=== PATIENT | female | born 1955 | race Caucasian/White ===

== ENCOUNTER → 2021-10-10 | Outpatient (CLI) | payer OTHER ==
[2021-10-10 19:45] LABS: BASOPHILS ABSOLUTE AUTO 0.03 K/mm3 (0.00-0.23); BASOPHILS PERCENT AUTO 1 % (0-2); EOSINOPHILS ABSOLUTE AUTO 0.11 K/mm3 (0.00-0.68); EOSINOPHILS PERCENT AUTO 2 % (0-6); Hematocrit 43.4 % (33.0-51.0); Hemoglobin 13.9 g/dL (11.5-16.0); IMMATURE GRAN ABSOLUTE AUTO 0.01 K/mm3 (0.00-0.10); IMMATURE GRAN PERCENT AUTO 0 % (0-1); LYMPHOCYTES ABSOLUTE AUTO 1.57 K/mm3 (0.84-5.20); LYMPHOCYTES PERCENT AUTO 31 % (21-46); MONOCYTES ABSOLUTE AUTO 0.49 K/mm3 (0.16-1.47); MONOCYTES PERCENT AUTO 10 % (4-13); Mean Corpuscular HGB 29.7 pg (26.0-34.0); Mean Corpuscular Volume 93 fL (80-100); NEUTROPHILS ABSOLUTE AUTO 2.94 K/mm3 (1.96-9.15); NEUTROPHILS PERCENT AUTO 57 % (41-73); Platelet Count 231 K/mm3 (150-400); RDW Standard Deviation 44.2 fL (35.1-46.3); Red Blood Cell Count 4.68 M/mm3 (3.80-5.20); White Blood Cell Count 5.15 K/mm3 (4.00-11.30)
[2021-10-10 20:42] LABS: Albumin, Blood 4.5 g/dL (3.4-5.0); Albumin/Globulin Ratio 1.5 (0.8-1.8); Bilirubin, Total 0.4 mg/dL (0.1-1.0); Bun/Creatinine Ratio 18.9 (12.0-20.0); Calcium, Blood 10.3 mg/dL (8.5-10.1); Creatinine, Blood 0.85 mg/dL (0.40-1.00); Globulin, Blood 3.1 g/dL (2.2-4.0); Potassium, Blood 4.1 mmol/L (3.5-5.5); Thyroid Stimulating Hormone 0.872 uIU/mL (0.360-4.800); Total Protein, Blood 7.6 g/dL (6.4-8.2)
== END | disposition home or self-care (01) ==
LOC: LAB SHORT 16:45 → LAB 16:45
PROVIDERS: Nurse Practitioner Family
DX: F32.A Depression, unspecified (principal); R42 Dizziness and giddiness
CPT/HCPCS: 80053; 84443; 85025

== ENCOUNTER → 2022-06-30 | Outpatient (CLI) | payer MEDICARE, OTHER ==
[2022-06-30 23:23] LABS: BASOPHILS ABSOLUTE AUTO 0.02 K/mm3 (0.00-0.23); BASOPHILS PERCENT AUTO 0 % (0-2); EOSINOPHILS ABSOLUTE AUTO 0.11 K/mm3 (0.00-0.68); EOSINOPHILS PERCENT AUTO 2 % (0-6); Hematocrit 39.7 % (33.0-51.0); Hemoglobin 12.7 g/dL (11.5-16.0); IMMATURE GRAN ABSOLUTE AUTO 0.01 K/mm3 (0.00-0.10); IMMATURE GRAN PERCENT AUTO 0 % (0-1); LYMPHOCYTES ABSOLUTE AUTO 1.51 K/mm3 (0.84-5.20); LYMPHOCYTES PERCENT AUTO 28 % (21-46); MONOCYTES ABSOLUTE AUTO 0.47 K/mm3 (0.16-1.47); MONOCYTES PERCENT AUTO 9 % (4-13); Mean Corpuscular HGB 29.6 pg (26.0-34.0); Mean Corpuscular Volume 93 fL (80-100); Mean Platelet Volume 10.1 fL (9.1-12.4); NEUTROPHILS ABSOLUTE AUTO 3.25 K/mm3 (1.96-9.15); NEUTROPHILS PERCENT AUTO 61 % (41-73); Platelet Count 247 K/mm3 (150-400); RDW Coefficient Variation 12.5 % (11.7-14.2); RDW Standard Deviation 42.4 fL (35.1-46.3); Red Blood Cell Count 4.29 M/mm3 (3.80-5.20); White Blood Cell Count 5.37 K/mm3 (4.00-11.30)
[2022-06-30 23:51] LABS: Bun/Creatinine Ratio 20.5 (12.0-20.0); Calcium, Blood 9.8 mg/dL (8.5-10.1); Creatinine, Blood 0.73 mg/dL (0.40-1.00); Potassium, Blood 4.1 mmol/L (3.5-5.5)
== END | disposition home or self-care (01) ==
LOC: LAB SHORT 13:58
PROVIDERS: Nurse Practitioner Family
DX: F41.8 Other specified anxiety disorders (principal); G47.00 Insomnia, unspecified
CPT/HCPCS: 80048; 85025

== ENCOUNTER 2023-07-28 08:12 | Day surgery (SDC) | payer MEDICARE, OTHER ==
[2023-07-28] VITALS (15 sets, daily range): BP systolic 105–156; BP diastolic 49–82
[~2023-07-28] VITALS: Ht 147.3 cm; Wt 48.6 kg
[~2023-07-28 08:12] MED LIST: ALLERCLEAR10 MG PO; DULO60 PO; GABA100 PO; Lactated Ringer's 1,000 ML IV SCH; MONT10T PO
[2023-07-28] MEDS ORDERED: propofoL 20 ML IV ONE (09:23)
--- NOTE | 2023-07-28 09:40 | NUR ---
07/28/23 0940 Roddy Noonan HISTORY, CHART, MEDICATIONS AND ALLERGIES REVIEWED BEFORE START OF PROCEDURE. PATIENT CONFIRMS NPO STATUS AND AGREES WITH SCHEDULED PROCEDURE. 3-LEAD EKG REVIEWED WITH PHYSICIAN PRIOR TO START OF PROCEDURE. MONITOR INTACT WITH CONTINUOUS PULSE OXIMETRY,CAPNOGRAPHY, 3-LEAD EKG, INTERMITTENT BP. SUPPLEMENTAL O2 TO BE TITRATED THROUGHOUT PROCEDURE TO MAINTAIN O2 SATURATION ABOVE 90%. PATIENT DETERMINED TO BE ASA APPROPRIATE FOR PROPOFOL SEDATION PRIOR TO START OF PROCEDURE BY
--- NOTE | 2023-07-28 10:31 | NUR ---
Discharge instructions reviewed with patient. Patient verbalizes understanding. Copy given to patient to take home. Patient States Post-Procedure ride home has been arranged. PT IN NO ACUTE DISTRESS. AMBULATES IN DAY SURGERY WITH STEADY GAIT.
== END 2023-07-28 10:32 | disposition home or self-care (01) ==
LOC: ORSCMMR 08:12 → ORD 09:00 → ORSCMMR 09:00
PROVIDERS: Internal Medicine Gastroenterology
PROC: 0DJD8ZZ Inspection of Lower Intestinal Tract, Via Natural or Artificial Opening Endoscopic (ICD-10-PCS; principal; 2023-07-28 09:00)
DX: Z12.11 Encounter for screening for malignant neoplasm of colon (principal); R19.5 Other fecal abnormalities; K64.8 Other hemorrhoids; J45.909 Unspecified asthma, uncomplicated; F32.A Depression, unspecified; Z79.899 Other long term (current) drug therapy
CPT/HCPCS: J2704; J7120

== ENCOUNTER 2023-11-26 06:49 | Day surgery (SDC) | payer MEDICARE, OTHER ==
[~2023-11-26] VITALS: Ht 147.3 cm; Wt 48.3 kg
[~2023-11-26 06:49] MED LIST changes: +Lactated Ringer's 1,000 ML IV ONE; -Lactated Ringer's 1,000 ML IV SCH
[2023-11-26] MEDS ORDERED: Acetaminophen 500 MG Tab ONE (07:08)
[2023-11-26] MEDS ORDERED: OxyCODONE HCL 10 MG TABCR ONE (07:09)
[2023-11-26] MEDS ORDERED: CeFAZolin Sodium 2,000 MG VIAL ONE (07:09)
[2023-11-26] MEDS ORDERED: NS 50 ML IV ONE (07:10)
[2023-11-26] MEDS ORDERED: Tranexamic Acid 100 ML IV ONE ×2 (07:10→08:07)
[2023-11-26] MEDS ORDERED: FLUT.05NI (07:24)
[2023-11-26] MEDS ORDERED: TRAZ50 PO (07:24)
[2023-11-26] MEDS ORDERED: MELATONIN5 M1 PO (07:25)
[2023-11-26] MEDS ORDERED: FentaNYL Citrate 50 MCG/ML 2 ML Injection ONE (07:31)
[2023-11-26] MEDS ORDERED: Midazolam HCL 1 MG/ML 5MLVIAL ONE (07:31)
[2023-11-26] MEDS ORDERED: Lactated Ringer's 1,000 ML IV ONE ×2 (07:32→08:56)
[2023-11-26] MEDS ORDERED: Rocuronium Bromide 10 MG/ML 5ML Injection IV ONE (07:32)
[2023-11-26] MEDS ORDERED: Ondansetron HCl 2 MG / ML 2ML Vial ONE (07:32)
[2023-11-26] MEDS ORDERED: propofoL 20 ML IV ONE (07:32)
[2023-11-26] MEDS ORDERED: Dexamethasone Sod Phos 10 MG/ML 1ML VIAL ONE (07:32)
--- NOTE | 2023-11-26 07:32 | NUR ---
11/26/23 0732 Amaya Browne NARES SWABBED
[2023-11-26] MEDS ORDERED: Bupivacaine 0.5% HCl 5 MG/ML 30MLVIAL ONE (07:39)
[2023-11-26] MEDS ORDERED: Chlorhexidine Mouth Care 15 ML UDC MT ONE (07:55)
[2023-11-26] MEDS ORDERED: ePHEDrine Sulfate 50 MG/ML 1ML Injection ONE (08:28)
--- NOTE | 2023-11-26 08:52 | NUR ---
11/26/23 0852 Nazia Montalvo FIRST DOSE OF TXA STARTED IN OR BY ANESTHESIA AT 0818.
[2023-11-26] MEDS ORDERED: Sugammadex Sodium 200 MG/2ML SDV (100 MG/ML) ONE (09:32)
[2023-11-26 10:21] VITALS: BP 134/56
--- NOTE | 2023-11-26 12:54 | NUR ---
11/26/23 1254 Edvin CoatsELL PLACED OVER INCISION PRIOR TO D/C, PER DR. TALAMANTES ORDERS. PT VOIDED SIGNIFICANT AMOUNT WITHOUT DIFFICULTY. DR. GALINDO APPROVED D/C WITHOUT BLADDER SCAN. PT DENIED NAUSEA AND PAIN AT TIME OF D/C. SHE APPEARED RELAXED AND ALERT AND EXPRESSED READINESS TO RETURN HOME.
== END 2023-11-26 12:45 | disposition home or self-care (01) ==
LOC: ORSCSDS 06:49
PROVIDERS: Orthopaedic Surgery
PROC: 0RRJ0JZ Replacement of Right Shoulder Joint with Synthetic Substitute, Open Approach (ICD-10-PCS; principal; 2023-11-26 08:00)
DX: M19.011 Primary osteoarthritis, right shoulder (principal); F32.A Depression, unspecified; F41.9 Anxiety disorder, unspecified; K21.9 Gastro-esophageal reflux disease without esophagitis; J45.909 Unspecified asthma, uncomplicated; Z79.899 Other long term (current) drug therapy
CPT/HCPCS: 73030; A9270; C1713; C1776; J0690; J1100; J2250; J2405; J2704; J3010; J7120

== ENCOUNTER → 2024-08-29 | Outpatient (CLI) | payer MEDICARE, OTHER ==
[~2024-08-29] MED LIST changes: +FLUT.05NI; -Lactated Ringer's 1,000 ML IV ONE; +MELATONIN5 M1 PO; +TRAZ50 PO
[2024-08-29 18:29] LABS: Bun/Creatinine Ratio 20.9 (12.0-20.0); Creatinine, Blood 0.81 mg/dL (0.40-1.00); Potassium, Blood 4.2 mmol/L (3.5-5.5)
== END | disposition home or self-care (01) ==
LOC: LAB 14:30 → LAB SHORT 14:30
PROVIDERS: Nurse Practitioner Family
DX: E78.5 Hyperlipidemia, unspecified (principal)
CPT/HCPCS: 80048